=== PATIENT | male | born 1955 | race Caucasian/White ===

== ENCOUNTER 2018-11-22 21:29 | Emergency (ER) | payer BC ==
[~2018-11-22] VITALS: Ht 175.3 cm; Wt 97.9 kg
[2018-11-22 21:31] VITALS: Ht 175.3 cm; Wt 97.9 kg
[2018-11-23] MEDS ORDERED: HYDROCODONE/APAP (5/325) TAB PO ONE (00:30)
[2018-11-23] MEDS ORDERED: HYDR-4011 PO (01:28)
[2018-11-23] MEDS ORDERED: IBUP-1561 PO (01:28)
[2018-11-23 01:41] VITALS: BP 133/86; PULSE 98; RESP 19
--- NOTE | 2018-11-23 07:13 | ERD ---
ER Documentation Chief Complaint Chief Complaint LOWER BACK PAIN S/P. NO HEAD TRAUMA OR LOC. HPI This is a 63-year-old male on baby aspirin presents to the ED complaining of mid and lower back pain status post fall earlier today. Patient states he was cleaning his Jacuzzi when asked he slipped and fell onto his back. No headd injury or LOC. He states he has pain to his back when sitting or with movement. He has been using a cane for ambulation. He is worried about a fracture and requesting x-ray. Patient also also sustained a bruise to his right elbow, but otherwise has full range of motion without any pain. No headache, no neck pain, no other concerns. No bilateral lower extremity numbness. No loss of bowel bladder incontinence. ROS All systems reviewed and are negative except as per history of present illness. Medications Home Meds Active Scripts Hydrocodone/Acetaminophen (Tripoli 5-325 Tablet) 1 Each Tablet, 1 TAB PO Q6H PRN for PAIN, #7 TAB Prov:DISHIGRIKIANMELIDA PA-C 11/23/18 Ibuprofen* (Motrin*) 400 Mg Tab, 400 MG PO Q6H PRN for PAIN AND OR ELEVATED TEMP, #30 TAB Prov:DISHIGRIKIANMELLYPYUR N PA-C 11/23/18 Allergies Allergies: Coded Allergies: No Known Allergy (Unverified , 11/22/18) PMhx/Soc Medical and Surgical Hx: pt denies Surgical Hx History of Surgery: No Anesthesia Reaction: No Hx Neurological Disorder: No Hx Respiratory Disorders: No Hx Cardiac Disorders: Yes (HTN ) Hx Psychiatric Problems: No Hx Miscellaneous Medical Probl: No Hx Alcohol Use: No Hx Substance Use: No Hx Tobacco Use: No Physical Exam Vitals Vital Signs Date Temp Pulse Resp B/P (MAP) Pulse Ox O2 O2 Flow FiO2 Time Delivery Rate 11/23/18 98.0 98 19 133/86 98 Room Air 01:41 (102) 11/22/18 97.9 98 18 147/86 10 21:31 (106) Physical Exam Const: No acute distress. + Walking with cane. Head: Atraumatic Eyes: Normal Conjunctiva. EOMI. ENT: Normal External Ears, Nose and Mouth. Neck: Full range of motion. No meningismus. Resp: Clear to auscultation bilaterally Cardio: Regular rate and rhythm, no murmurs Abd: Soft, non tender, non distended. Normal bowel sounds Skin: No petechiae or rashes Back: + Moderate tenderness palpation of mid thoracic and lumbar spine. No step-offs. Lower extremity strength 5/5. Sensation grossly intact. Distal pulses intact. Ext: + Right elbow ecchymosis. Full range of motion of the elbow, supination and pronation intact. Distal pulses intact. Cap refill less than 2 seconds. Left upper extremity normal. Neur: Awake and alert Psych: Normal Mood and Affect Results 24 hrs Current Medications Medications Dose Sig/Bessy Start Time Status Last (Trade) Ordered Route PRN Stop Time Admin Dose Reason Admin 1 tab ONCE ONCE 11/23/18 DC 11/23/18 Acetaminophen PO 00:30 11/23/18 00:23 / 00:31 Hydrocodone Bitart (Tri[place] (5/325)) Procedures/MDM LABS & DIAGNOSTIC IMAGING: PROCEDURE: XR Lumbar Spine. CLINICAL INDICATION: Trauma due to a fall. Back pain. TECHNIQUE: Three views. AP, lateral and cone-down lateral view of the lumbar spine were obtained. COMPARISON: No prior studies are available for comparison. FINDINGS: There is normal stature and alignment of the vertebrae. There is no fracture. There is no lytic or blastic lesion. There are mild degenerative changes with disc space narrowing and osteophytes at L1-2, L2-3 and L5-S1. The paravertebral soft tissues are unremarkable. IMPRESSION: 1. Degenerative change at L1-2, L2-3 and L5-S1. 2. Otherwise unremarkable images of the lumbar spine. PROCEDURE: XR Thoracic Spine. CLINICAL INDICATION: Trauma due to a fall. Back pain. TECHNIQUE: Three views. Frontal, lateral, and lateral swimmers. COMPARISON: None available FINDINGS: There is normal stature and alignment of the vertebrae. There is no fracture. There is no lytic or blastic lesion. There are mild degenerative changes with small osteophytes throughout. The paravertebral soft tissues are unremarkable. IMPRESSION: 1. Mild degenerative change. 2. Otherwise unremarkable images of the thoracic spine ED COURSE: The patient was given Tri[place] The medication was well tolerated and the patient had market improvement in symptoms. The patient remained stable throughout ED course. MEDICAL DECISION MAKING: This is a very sweet 63-year-old male on baby aspirin who presents with back pain after slip and fall. There is no LOC or head injury involved. His x-ray of the thoracic and lumbar spine reveals degenerative disc disease w/o acute fracture or dislocation. Symptoms are likely musculoskeletal in origin. He is neurovascularly intact. I have low suspicion for cauda equina or cord compression. Patient felt much better after Tripoli. Patient was discharged home with appropriate pain medications. Recommend PCP follow-up in 1 week. Strict return precautions were discussed. PRESCRIPTIONS: Tri[place]i, ibuprofen SPECIALIST FOLLOW UP RECOMMENDED: None Patient has been advised to follow up with primary care in 1-2 days. Departure Diagnosis: Primary Impression: Elbow contusion Encounter type: initial encounter Laterality: right Qualified Codes: S50.01XA - Contusion of right elbow, initial encounter Additional Impression: Back contusion Encounter type: initial encounter Laterality: unspecified laterality Qualified Codes: S20.229A - Contusion of unspecified back wall of thorax, initial encounter Condition: Stable Patient Instructions: Contusion, Elbow, Contusion, Back Referrals: [facility] YOU HAVE RECEIVED A MEDICAL SCREENING EXAM AND THE RESULTS INDICATE THAT YOU DO NOT HAVE A CONDITION THAT REQUIRES URGENT TREATMENT IN THE EMERGENCY DEPARTMENT. FURTHER EVALUATION AND TREATMENT OF YOUR CONDITION CAN WAIT UNTIL YOU ARE SEEN IN YOUR DOCTORS OFFICE WITHIN THE NEXT 1-2 DAYS. IT IS YOUR RESPONSIBILITY TO MAKE AN APPOINTMENT FOR [facility]. IF YOU HAVE A PRIMARY DOCTOR --you should call your primary doctor and schedule an appointment IF YOU DO NOT HAVE A PRIMARY DOCTOR YOU CAN CALL OUR PHYSICIAN REFERRAL HOTLINE AT IF YOU CAN NOT AFFORD TO SEE A PHYSICIAN YOU CAN CHOSE FROM THE FOLLOWING [facility] [address] [facility]. [facility] [address] [facility] [address] [facility]. [facility] [address] [facility]. [facility] [address] [facility]. [facility]. [address] [facility] YOU HAVE RECEIVED A MEDICAL SCREENING EXAM AND THE RESULTS INDICATE THAT YOU DO NOT HAVE A CONDITION THAT REQUIRES URGENT TREATMENT IN THE EMERGENCY DEPARTMENT. FURTHER EVALUATION AND TREATMENT OF YOUR CONDITION CAN WAIT UNTIL YOU ARE SEEN IN YOUR DOCTORS OFFICE WITHIN THE NEXT 1-2 DAYS. IT IS YOUR RESPONSIBILITY TO MAKE AN APPOINTMENT FOR [facility]-UP CARE. IF YOU HAVE A PRIMARY DOCTOR --you should call your primary doctor and schedule and appointment IF YOU DO NOT HAVE A PRIMARY DOCTOR YOU CAN CALL OUR PHYSICIAN REFERRAL HOTLINE AT . IF YOU CAN NOT AFFORD TO SEE A PHYSICIAN YOU CAN CHOSE FROM THE FOLLOWING [facility] INSTITUTIONS: [facility] [address] [place] [address] [facility] [address] [place] [address] [facility] [address] [place] [address] Additional Instructions: Call your primary care doctor TOMORROW for an appointment during the next 2-4 days and bring all the information and medications prescribed. If the symptoms get worse and your provider is unavailable, return to the Emergency Department immediately. MELIDA DUARTE PA-C Nov 23, 2018 07:13
== END 2018-11-23 01:43 | disposition home or self-care (01) ==
LOC: FTE 21:29
DX: S20.229A Contusion of unspecified back wall of thorax, initial encounter (principal); I10 Essential (primary) hypertension; S50.01XA Contusion of right elbow, initial encounter; W01.0XXA Fall on same level from slipping, tripping and stumbling without subsequent striking against object, initial encounter; Y92.9 Unspecified place or not applicable
CPT/HCPCS: 72072; 72100